=== PATIENT | female | born 1965 | race African-American/Black ===

== ENCOUNTER → 2018-06-23 13:37 | Outpatient (CLI) | payer MEDICARE, MEDICAID, SELFPAY ==
--- NOTE | 2018-06-23 13:52 | BI_ITS ---
MAMMOGRAPHY - BILATERAL SCREENING REASON FOR EXAM: Female, 52 years old. Routine annual screening examination. PERTINENT HISTORY: Aunt with breast cancer. TECHNIQUE: Digital bilateral breast rosalio (3D mammographic acquisition) in the CC and MLO projections. 2-D mediolateral oblique (MLO) and craniocaudad (CC) views of both breasts were obtained. CAD: Full Field Digital Mammography with Computer Added Detection was performed. COMPARISON: Comparison is made with prior outside examination dated May 05, 2017 and February 19, 2015. FINDINGS: Breast Composition: The breasts are almost entirely fatty. There are no dominant masses or suspicious calcifications. Stable small benign appearing bilateral axillary lymph nodes. No other significant abnormalities are identified. There has been no significant change since the prior study. BI/SCREENING MAMM (CAD), BILAT IMPRESSION: Stable bilateral screening mammogram. Yearly follow-up mammogram recommended. (A) ASSESSMENT CATEGORY: BIRADS Category 2: Benign. A letter regarding these results will be sent to the patient by the facility within 30 days. Approximately 10% of breast cancers are not detected by mammography. A normal mammogram should not delay biopsy of a clinically suspicious abnormality. [id number] Electronically Signed: Luisito Aparicio, at 14:03 EDT , Service support ,
== END ==
PROVIDERS: Referring Provider Internal Medicine; Visit Provider Internal Medicine
DX: Z12.31 Encounter for screening mammogram for malignant neoplasm of breast (principal)
CPT/HCPCS: 77063; 77067

== ENCOUNTER → 2022-05-07 | Outpatient (CLI) | payer MEDICARE, MEDICAID, SELFPAY ==
--- NOTE | 2022-05-06 | FLU_PTH ---
PATIENT: KYLER MURPHY LOC: [facility] U#:[id number] AGE/SX: 56/F ROOM: RE05/07/[address]: Dr. Yin Cantor MD : 1965 BED: DIS: 05/07/2022 SPEC #: [id number] RECD: 05/07/22 12:05 STATUS: [place] [facility] #: [id number] JOAO: 05/06/22 00:[address]: Yin Cantor DEPT: CYTOLOGY RECD BY: Kath Ralph ENTERED: 05/07/22 13:04 SP TYPE: Fluid OTHR DR: Dr. Mesfin Aldana MD Tissues: A - Thyroid gland, NOS B - Thyroid gland, NOS Procedures: Special Stain Group II Surgery Specimen Level IV Cytospin Fluid Cytology Other HEADER OPERATION: Fine needle aspiration left thyroid PRE-OP DIAGNOSIS: Thyroid nodules TISSUE SUBMITTED: A ? Left thyroid nodule fluid, B ? Left thyroid nodule x4 slides DIAGNOSIS CYTOLOGY A. Left thyroid nodule fluid, fine needle aspiration (cytospin and cell block): Negative for malignant cells. See comment. B. Left thyroid nodule, fine needle aspiration (smears): Consistent with benign follicular/colloid nodule ([place] Category II). Adequate for evaluation. See comment. SJ:rashaad 05/10/2022 COMMENT A. A few clusters of benign follicular cells are noted. Correlation with clinical, radiologic findings and appropriate follow up are necessary. CYTOLOGY STUDY Slides are reviewed. CYTOLOGY GROSS A - Received is 30 ml of brown cloudy fluid labeled with the patient's name and and designated per the requisition as left thyroid. Submitted for cytology preparation including cell block. B - Received are four smears labeled with the patient's name and designated per the requisition as left thyroid. Submitted for staining. / rashaad 05/07/2022 TC:5 CPT: 38642 x2, 32549
== END | disposition home or self-care (01) ==
LOC: LABSPEC 12:17
PROVIDERS: PCP Family Medicine; Visit Provider Surgery
DX: E04.1 Nontoxic single thyroid nodule (principal)
CPT/HCPCS: 88108; 88161; 88305; 88313